=== PATIENT | male | born 1995 | race American Indian/Alaskan Native ===

== ENCOUNTER 2021-06-26 22:59 | Emergency (ER) | payer MEDICAID ==
[2021-06-27] MEDS ORDERED: traMADol 50 MG TAB PO ONE (05:09)
[2021-06-27] MEDS ORDERED: TETANUS,DIPH,PERTUSS(ACELL) VACCINE 0.5 ML SYRINGE IM ONE (05:10)
--- NOTE | 2021-06-27 05:44 | XRay Report ---
LEFT FOOT 3 VIEWS INDICATION / CLINICAL INFORMATION: Stepped on a nail. COMPARISON: None available. FINDINGS: BONES / JOINT(S): No acute fracture or subluxation. No significant arthritis. There are tiny dorsal a nd plantar calcaneal spurs. SOFT TISSUES: No significant abnormality. I do not identify a radiopaque foreign body. ADDITIONAL FINDINGS: None. IMPRESSION: No acute abnormality. Signer Name: Blu Griffin MD Signed: 06/27/2021 5:40 AM Workstation Name: [id number]
--- NOTE | 2021-06-27 05:55 | Emergency Department Report ---
ED Lower Extremity HPI - General Chief Complaint: Extremity Injury, Lower Stated Complaint: LEFT FOOT PAIN/STEPPED ON A NAIL Time Seen by Provider: 06/27/21 05:08 Source: patient Mode of arrival: Ambulatory Limitations: No Limitations - History of Present Illness Initial Comments: Patient 26-year-old male who stepped on a nail this afternoon. States 5/10 pain and swelling. Pain is exacerbated by attempted weightbearing. There is no active bleeding last tetanus shot unknown patient is not a diabetic. There is no obvious deformity noted at this time patient is partial weightbearing. Is wearing sneakers at time of injury MD Complaint: foot injury - Related Data Previous Rx's Medication Instructions Recorded Last Taken Type Ciprofloxacin HCl 500 mg PO BID 7 Days #14 tab 06/27/21 Unknown Rx traMADoL [Ultram] 50 mg PO Q6HR PRN 3 Days #12 tablet 06/27/21 Unknown Rx Allergies Allergy/AdvReac Type Severity Reaction Status Date / Time No Known Allergies Allergy Verified 06/26/21 23:31 ED Review of Systems ROS: Stated complaint: LEFT FOOT PAIN/STEPPED ON A NAIL Other details as noted in HPI Constitutional: denies: chills, fever Eyes: denies: eye pain, eye discharge, vision change ENT: denies: ear pain, throat pain Respiratory: denies: cough, shortness of breath, wheezing Cardiovascular: denies: chest pain, palpitations Endocrine: no symptoms reported Gastrointestinal: denies: abdominal pain, nausea, diarrhea Genitourinary: denies: urgency, dysuria Musculoskeletal: other (foot pain left ) Skin: other (puncture wound left food plantar). denies: rash, lesions Neurological: denies: headache, weakness, paresthesias Psychiatric: denies: anxiety, depression Hematological/Lymphatic: denies: easy bleeding, easy bruising ED Past Medical Hx - Medications Home Medications: Home Medications Medication Instructions Recorded Confirmed Last Taken Type Ciprofloxacin HCl 500 mg PO BID 7 Days #14 tab 06/27/21 Unknown Rx traMADoL [Ultram] 50 mg PO Q6HR PRN 3 Days #12 tablet 06/27/21 Unknown Rx ED Physical Exam - General Limitations: No Limitations General appearance: alert, in no apparent distress - Head Head exam: Present: normocephalic, normal inspection - Eye Eye exam: Present: normal appearance, PERRL, EOMI Pupils: Present: normal accommodation - ENT ENT exam: Present: mucous membranes moist - Neck Neck exam: Present: normal inspection, full ROM. Absent: tenderness - Respiratory Respiratory exam: Present: normal lung sounds bilaterally. Absent: respiratory distress, wheezes, stridor - Cardiovascular Cardiovascular Exam: Present: regular rate, normal rhythm, normal heart sounds. Absent: systolic murmur, diastolic murmur, rubs, gallop - GI/Abdominal GI/Abdominal exam: Present: soft, normal bowel sounds. Absent: distended, tenderness - Rectal Rectal exam: Present: deferred - Extremities Exam Extremities exam: Present: full ROM, normal capillary refill - Expanded Lower Extremity Exam Left Foot/Toe exam: Present: full ROM, tenderness. Absent: swelling, abrasion, laceration, ecchymosis, deformity, crepidus, dislocation, erythema, tenderness at base of 5th metatarsal Neuro vascular tendon exam: Present: no vascular compromise. Absent: pulse deficit, motor deficit, sensory deficit, tendon deficit Gait: Positive: observed and limited by pain - Back Exam Back exam: Present: normal inspection - Neurological Exam Neurological exam: Present: alert, oriented X3 - Psychiatric Psychiatric exam: Present: normal affect, normal mood - Skin Skin exam: Present: warm, dry, normal color, erythema (Small puncture wound left plantar lateral foot). Absent: rash ED Course Vital Signs 06/26/21 23:04 Temperature 97.6 F Pulse Rate 74 Respiratory 18 Rate Blood Pressure 138/80 O2 Sat by Pulse 100 Oximetry ED Lower Extremity MDM - Radiology Data Radiology results: report reviewed, image reviewed LEFT FOOT 3 VIEWS INDICATION / CLINICAL INFORMATION: Stepped on a nail. COMPARISON: None available. FINDINGS: BONES / JOINT(S): No acute fracture or subluxation. No significant arthritis. There are tiny dorsal and plantar calcaneal spurs. SOFT TISSUES: No significant abnormality. I do not identify a radiopaque foreign body. ADDITIONAL FINDINGS: None. IMPRESSION: No acute abnormality. Signer Name: Blu Griffin MD Signed: 06/27/2021 5:40 AM Workstation Name: [id number] Transcribed By: RT Dictated By: Blu Griffin MD Electronically Authenticated By: Blu Griffin MD Signed Date/Time: 06/27/21539 DD/ 8 TD/TT: - Medical Decision Making No fracture no subluxation no dislocation no retained metal fragments. Plan Ortho shoe, crutches, NSAIDs as needed pain, rice therapy, follow-up with your doctor in 2 to 3 days. Patient verbalized agreement understanding discharge plan. Patient DC'd home in stable condition at this time. Critical care attestation.: If time is entered above; I have spent that time in minutes in the direct care of this critically ill patient, excluding procedure time. ED Disposition Clinical Impression: Puncture wound of foot Qualifiers: Encounter type: initial encounter Laterality: left Qualified Code(s): S91.332A - Puncture wound without foreign body, left foot, initial encounter Disposition: HOME / SELF CARE / HOMELESS Is pt being admited?: No Does the pt Need Aspirin: No Condition: Stable Instructions: Puncture Wound, Wound Care, Adult Additional Instructions: Take medication as prescribed, wash with soap and water daily. Follow-up with your doctor in 2 to 3 days. Use crutches and Ortho shoe as directed. Return to emergency department should symptoms worsen. Prescriptions: Ciprofloxacin HCl 500 mg PO BID 7 Days #14 tab traMADoL [Ultram] 50 mg PO Q6HR PRN 3 Days #12 tablet PRN Reason: Pain Referrals: KEATON KELLEY MD [Staff Physician] - 3-5 Days Forms: Work/School Release Form(ED) Time of Disposition: 06:00
[2021-06-27 06:09] VITALS: BP 132/72
== END 2021-06-27 06:09 | disposition home or self-care (01) ==
LOC: ED 22:59
DX: S91.332A Puncture wound without foreign body, left foot, initial encounter (principal); Z79.899 Other long term (current) drug therapy; W45.0XXA Nail entering through skin, initial encounter; Y93.89 Activity, other specified; Y92.89 Other specified places as the place of occurrence of the external cause; Y99.8 Other external cause status
CPT/HCPCS: 90471; 90715; 99283